=== PATIENT | female | born 1975 | race Caucasian/White ===

== ENCOUNTER 2018-04-15 07:00 | Inpatient (IN) | payer OTHER ==
[~2018-04-15] VITALS: Ht 160 cm; Wt 248.0 kg
[2018-04-25] MEDS ORDERED: PERCOCET 5-3251 EACH PO (17:15)
[2018-04-25] MEDS ORDERED: ELIQUIS2.5 MG PO (17:15)
[2018-04-25] MEDS ORDERED: DUI500 PO (17:15)
== END 2018-04-25 21:06 | DRG 470 ==
LOC: O/R 04-23 06:23 → SURH 04-23 06:23 → RECOVERY 04-23 07:00 → SURH 04-23 19:00
PROVIDERS: Orthopaedic Surgery
PROC: 0MNN0ZZ Release Right Knee Bursa and Ligament, Open Approach (ICD-10-PCS; 2018-04-23)
PROC: 0SRC0J9 Replacement of Right Knee Joint with Synthetic Substitute, Cemented, Open Approach (ICD-10-PCS; principal; 2018-04-23 19:00)
DX: M17.11 Unilateral primary osteoarthritis, right knee (principal); D62 Acute posthemorrhagic anemia; E66.8 Other obesity; M81.0 Age-related osteoporosis without current pathological fracture